=== PATIENT | female | born 1960 | race Caucasian/White ===

== ENCOUNTER 2017-12-27 08:43 | Day surgery (SDC) | payer OTHER ==
[~2017-12-27 08:43] MED LIST: Lactated Ringers 1,000 ML IV SCH; Lidocaine 1%/Sod Bicarbonate in NS 8.4% 1 ML Syringe IDERM PRN; Sodium Chloride 0.9% 10 ML Syringe FLUSH PRN
[2017-12-27] MEDS ORDERED: Propofol 200 MG/20 ML SDV ONE ×3 (09:59→12:09)
[2017-12-27] MEDS ORDERED: Midazolam 1 MG/ML 2 ML SDV ONE (09:59)
[2017-12-27] MEDS ORDERED: fentaNYL 250 MCG/5 ML SDV ONE (10:00)
[2017-12-27] MEDS ORDERED: Dexamethasone 4 MG/ML SDV ONE (10:00)
[2017-12-27] MEDS ORDERED: Ondansetron 4 MG/2 ML SDV ONE (10:00)
[2017-12-27] MEDS ORDERED: Lidocaine 1% 4 ML ONE (10:00)
[2017-12-27] MEDS ORDERED: Rocuronium 50 MG/5 ML Vial ONE (10:01)
[2017-12-27] MEDS ORDERED: ceFAZolin 1 GM Vial ONE ×2 (10:03)
--- NOTE | 2017-12-27 10:09 | PCM.PREANE ---
Preanesthetic Assessment - Procedure Proposed Procedure: Laparoscopy, D&C - Anesthesia/Transfusion/Family Hx Anesthesia History: Prior Anesthesia Without Reaction Family History of Anesthesia Reaction: No Transfusion History: No Prior Transfusion(s) Additional History: abdominal aortic bifurcation, SLE on chart but patient stated it "resolved itself" - Review of Systems General: No Symptoms Pulmonary: No Symptoms Cardiovascular: No Symptoms Gastrointestinal: No Symptoms Neurological: No Symptoms Other: Reports: Thyroid Problems (hypothyroid) - Physical Assessment NPO Status Date: 12/26/17 NPO Status Time: 21:00 O2 Sat by Pulse Oximetry: 96 Respiratory Rate: 18 Vital Signs: Last Vital Signs Temp 36.4 C 12/27/17 08:45 Pulse 65 12/27/17 08:45 Resp 18 12/27/17 08:45 BP 149/83 H 12/27/17 08:45 Pulse Ox 96 12/27/17 08:45 Height: 1.7 m Weight: 90.265 kg ASA Class: 2 Airway Class: Mallampati = 2 Dentition: Reports: Normal Dentition Thyro-Mental Finger Breadths: 3 ROM/Head Extension: Full Lungs: Clear to Auscultation, Normal Respiratory Effort Cardiovascular: Regular Rate, Regular Rhythm - Lab Values: Laboratory Last Values WBC 4.58 K/mm3 (3.98-10.04) 12/27/17 09:05 RBC 5.34 M/mm3 (3.98-5.22) H 12/27/17 09:05 Hgb 15.4 gm/L (11.2-15.7) 12/27/17 09:05 Hct 46.2 % (34.1-44.9) H 12/27/17 09:05 MCV 86.5 fl (79.4-94.8) 12/27/17 09:05 MCH 28.8 pg (25.6-32.2) 12/27/17 09:05 MCHC 33.3 g/dl (32.2-35.5) 12/27/17 09:05 RDW Std Deviation 42.3 fL (36.4-46.3) 12/27/17 09:05 Plt Count 187 K/mm3 (182-369) 12/27/17 09:05 MPV 9.5 fl (9.4-12.3) 12/27/17 09:05 Neut % (Auto) 42.2 % (34.0-71.1) 12/27/17 09:05 Lymph % (Auto) 41.5 % (19.3-51.7) 12/27/17 09:05 Grainger % (Auto) 12.9 % (4.7-12.5) H 12/27/17 09:05 Eos % (Auto) 2.8 (0.7-5.8) 12/27/17 09:05 Baso % (Auto) 0.4 % (0.1-1.2) 12/27/17 09:05 Neut # (Auto) 1.93 K/mm3 (1.56-6.13) 12/27/17 09:05 Lymph # (Auto) 1.90 K/mm3 (1.18-3.74) 12/27/17 09:05 Grainger # (Auto) 0.59 K/mm3 (0.24-0.36) H 12/27/17 09:05 Eos # (Auto) 0.13 K/mm3 (0.04-0.36) 12/27/17 09:05 Baso # (Auto) 0.02 K/mm3 (0.01-0.08) 12/27/17 09:05 - Allergies Allergies/Adverse Reactions: Allergies Allergy/AdvReac Type Severity Reaction Status Date / Time Sulfa (Sulfonamide Allergy Rash Verified 12/26/17 12:36 Antibiotics) codeine AdvReac Nausea Verified 12/26/17 14:14 - Blood Blood Available: No Product(s) Available: None - Anesthesia Plan Pre-Op Medication Ordered: None - Acknowledgements Anesthesia Type Planned: General Anesthesia (TIVA recommended ) Pt an Appropriate Candidate for the Planned Anesthesia: Yes Alternatives and Risks of Anesthesia Discussed w Pt/Guardian: Yes Pt/Guardian Understands and Agrees with Anesthesia Plan: Yes PreAnesthesia Questionnaire HEENT History: Reports: Impaired Vision Cardiovascular History: Reports: Other (See Below) Other Cardiovascular 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, has seen cardiology, no interventions needed Respiratory History: Reports: None Gastrointestinal History: Reports: None Genitourinary History: Reports: None WEB SEARCH EVALUATOR History: Reports: Other (See Below) Other OB/BYN History: hot flashes, ovarian cyst, thickened endometrium, Musculoskeletal History: Reports: None Neurological History: Reports: None Psychiatric History: Reports: None Endocrine/Metabolic History: Reports: Hypothyroidism Hematologic History: Reports: None Immunologic History: Reports: SLE Oncologic (Cancer) History: Reports: None Dermatologic History: Reports: None - Past Surgical History Head Surgeries/Procedures: Reports: None HEENT Surgical History: Reports: None Cardiovascular Surgical History: Reports: None Respiratory Surgical History: Reports: None GI Surgical History: Reports: Cholecystectomy Female Surgical History: Reports: None Male Surgical History: Reports: None Endocrine Surgical History: Reports: None Neurological Surgical History: Reports: None Musculoskeletal Surgical History: Reports: None Oncologic Surgical History: Reports: None Dermatological Surgical History: Reports: None - SUBSTANCE USE Smoking Status *Q: Never Smoker Recreational Drug Use History: No - HOME MEDS Home Medications: Home Meds Multivitamin [Multi-Day Vitamins] 1 tab PO DAILY 12/26/17 [History] Mv-Mn/Lutein/Zeax/Bilber/Hb277 [Macular Health Formula Capsule] 1 tab PO DAILY 12/26/17 [History] Progesterone,Micronized [Progesterone] 100 mg PO BEDTIME 12/26/17 [History] Progesterone/Estrogen/Testoste 1 dose TOP DAILY 12/26/17 [History] - CURRENT (IN HOUSE) MEDS Current Meds: Current Medications Lactated Ringer's (Ringers, Lactated) 1,000 mls @ 125 mls/hr IV ASDIRECTED KAVITA Stop: 12/27/17 23:00 Last Admin: 12/27/17 09:00 Dose: 125 mls/hr Lidocaine/Sodium Bicarbonate (Buffered Lidocaine 1% In Ns 8.4%) 0.25 ml IDERM ONETIME PRN PRN Reason: Prior to IV Start Stop: 12/27/17 18:00 Last Admin: 12/27/17 08:59 Dose: 0.25 ml Scopolamine (Transderm-Scop) 1.5 mg TRDERM Q72H ONE Stop: 12/27/17 10:07 Sodium Chloride (Saline Flush) 10 ml FLUSH ASDIRECTED PRN PRN Reason: Keep Vein Open Stop: 12/27/17 18:00 Discontinued Medications Dexamethasone (Dexamethasone) Confirm Administered Dose 4 mg .ROUTE .STK-MED ONE Stop: 12/27/17 10:01 Fentanyl (Sublimaze) Confirm Administered Dose 250 mcg .ROUTE .STK-MED ONE Stop: 12/27/17 10:01 Lidocaine HCl (Xylocaine-Mpf 1%) Confirm Administered Dose 4 mls @ as directed .ROUTE .STK-MED ONE Stop: 12/27/17 10:01 Midazolam HCl (Versed 1 Mg/Ml) Confirm Administered Dose 2 mg .ROUTE .STK-MED ONE Stop: 12/27/17 10:00 Ondansetron HCl (Zofran) Confirm Administered Dose 4 mg .ROUTE .[email or web address] ONE Stop: 12/27/17 10:01 Propofol (Diprivan 20 Ml) Confirm Administered Dose 200 mg .ROUTE .STK-MED ONE Stop: 12/27/17 10:00 Propofol (Diprivan 20 Ml) Confirm Administered Dose 200 mg .ROUTE .[email or web address] ONE Stop: 12/27/17 10:02 Rocuronium [place] (Zemuron) Confirm Administered Dose 50 mg .ROUTE .STK-MED ONE Stop: 12/27/17 10:02
[2017-12-27] MEDS ORDERED: Scopolamine 1.5 MG Transdermal Patch TRDERM ONE (10:15)
[2017-12-27] MEDS: Bupivacaine 0.5% 30 ML SDV ONE ×2 (10:38→11:30)
[2017-12-27] MEDS ORDERED: HYDROmorphone 0.5 MG/0.5 ML Syringe ONE ×3 (11:16→12:52)
[2017-12-27] MEDS ORDERED: Labetalol 100 MG/20 ML MDV ONE (11:54)
[2017-12-27] MEDS ORDERED: Lactated Ringers 1,000 ML ONE (12:02)
[2017-12-27] MEDS ORDERED: Ketorolac 30 MG/ML SDV ONE (12:03)
[2017-12-27] MEDS ORDERED: Phenylephrine/Normal Saline 100 MCG/ML 10 ML Syringe ONE (12:25)
[2017-12-27] MEDS ORDERED: ePHEDrine/Normal Saline 25 MG/5 ML Syringe ONE (12:26)
--- NOTE | 2017-12-27 13:14 | PCM.OPNOTE ---
- General Post-Op/Procedure Note Date of Surgery/Procedure: 12/27/17 Operative Procedure(s): Left salpingo-oophorectomy via laparoscope 95928. Lysis of adhesions via laparoscope 00734. D&C hysteroscopy 65913 Pre Op Diagnosis: Ovarian cysts left, thickened endometrium Post-Op Diagnosis: Same plus adhesions of ovary to pelvic sidewall. Anesthesia Technique: General ET Tube Primary Surgeon: Nico Escobar Secondary Surgeon: Georgi Vallecillo Anesthesia Provider: Cinthia Hull Home Extension Agent: Maria Lagos ([email or web address]) Reason Home Extension Agent Was Necessary: Difficulty of surgery, assist in surgery, decrease comorbidity and colmortality Role of Home Extension Agent: Difficulty of surgery, assist in surgery, decrease comorbidity and colmortality Fluid Replacement, Intraop: 1,500 Output, Urine Amount: 50 EBL in mLs: 200 Drain/Tube Comments:: [place] placed during surgery and removed after surgery. Complications: None Condition: Good Free Text/Narrative:: Patient was transported to operating room and placed under general anesthesia with endotracheal intubation the low dorsal lithotomy position. Prepared and draped in a sterile fashion. Timeout performed confirming name, date of , and procedure as laparoscopy removal of left ovary and tube and D&C and hysteroscopy. SCDs in place and functioning prior surgery. Ancef 2 g given intravenously prior surgery. Vaginal and abdominal prep having been performed the examination under anesthesia had revealed left adnexal mass as previously noted. A 2 mL injection of 0.5% Marcaine placed at the umbilicus and a vertical incision made and the pneumoperitoneum needle was introduced without difficulty. Prompt visualization of the pelvic organs was accomplished. The left ovary was enlarged approximate 6 x 6 x 6 cm. There were adhesions of the left ovary to the pelvic sidewall along with adhesions from bowel as well to pelvic sidewall. A midline incision was made approximately 5 mm in length and 5 mm trocar introduced and left lower quadrant and right lower quadrant trochars were introduced in the flanks along 2 cm in and 2 cm up from the superior iliac crest. Utilizing manipulators and the Enseal the ovary was grasped and elevated with traction and adhesions were lysed from the ovary to the pelvic sidewall along with lysis of adhesions from the bowel to the pelvic sidewall pushing the large intestines away from the ovary the ovary was elevated and the infundibulopelvic ligament was crossclamped activated in seal and incised. Hemostasis was normal. The sitting towards the uterus crossclamping with the Enseal activating and incising until the triple pedicle was approximated removing the ovary by crossclamping the utero-ovarian ligament and fallopian tube activating and incising. Irrigation was carried out her several raw areas of bleeding and these were clamped and Enseal activated. A 12 mm incision was made and 12 mm port introduced at the suprapubic area and Endobag introduced and the ovary placed in the Endobag. Due to the size of the ovary incision had to be extended laterally in the suprapubic region to accommodate removal of the ovary in the Endobag. The anterior fascia was then suture ligated with 0 Vicryl running suture. Subcutaneous tissue was approximated with 3-0 running Vicryl and the skin was closed with 4-0 Monocryl subcuticular suture. Pneumoperitoneum was then reestablished and inspection of the surgery area revealed a small amount of oozing and FloSeal was introduced for hemostasis irrigation had been carried out and extraneous blood removed from the cul-de-sacs anterior and posterior. Sponge needle pack and instrument count correct 2 the remaining incisions were closed with 3-0 Monocryl for subcutaneous tissue and 4-0 Monocryl for the subcuticular closure. D&C and hysteroscopy performed sounding the uterus to 8 cm dilating to accommodate the hysteroscope evaluation with the hysteroscope revealed no polyps no significant amount of tissue both tubal ostia were visualized. Curettage was performed all tissue sent to pathology for tissue evaluation. Images taken Image 001 left ovary Image 002 each or of gloved hand focusing image Image 003 hysteroscopy view of the right tubal ostium Image 004 shows the left tubal ostium Image 005 shows the left tubal ostium after curettage Image 006 shows the right tubal ostium visualized proximally 6:00 after the curettage Image 007 the cervical canal and apex of the endometrial cavity with the right tubal ostium visualized
--- NOTE | 2017-12-27 13:41 | PCM.POSTAN ---
POST ANESTHESIA ASSESSMENT - MENTAL STATUS Mental Status: Other (drowsy ) - VITAL SIGNS Pulse Rate: 76 SaO2: 95 Resp Rate: 16 Blood Pressure: 117/76 Temperature: 37 C - RESPIRATORY Respiratory Status: Respiratory Rate WNL, Airway Patent, O2 Saturation Stable - CARDIOVASCULAR CV Status: Pulse Rate WNL, Blood Pressure Stable - GASTROINTESTINAL GI Status: No Symptoms - PAIN Pain Score: 0 - POST OP HYDRATION Hydration Status: Adequate & Stable
[2017-12-27] MEDS ORDERED: HYDROmorphone 0.5 MG/0.5 ML Syringe IVPUSH PRN (13:42)
[2017-12-27] MEDS ORDERED: fentaNYL 100 MCG/2 ML SDV IVPUSH PRN (13:42)
[2017-12-27] MEDS ORDERED: Ondansetron 4 MG/2 ML SDV IVPUSH PRN (13:42)
[2017-12-27] MEDS ORDERED: diphenhydrAMINE 50 MG/ML SDV IVPUSH PRN (13:42)
[2017-12-27] MEDS ORDERED: Acetaminophen/HYDROcodone 325-5 MG Tab PO PRN (14:45)
[2017-12-27] MEDS ORDERED: Albuterol 0.083% 2.5 MG/3 ML Neb Soln NEB ONE (15:36)
--- NOTE | 2017-12-27 16:04 | PCM.SN ---
- Free Text/Narrative Note: 12/27/2017 1603 Nausea better, has scopolamine patch in place. O2 sats have been 95-97% on one liter O2 and drops to 88 with room air. Respiratory therapy here for breathing treatment, then insentive spirometer frequently while awake. Will re-evaluate after breathing treatment.
== END 2017-12-27 19:23 | disposition home or self-care (01) ==
LOC: JD.SDS 08:43
PROVIDERS: ATTEND Obstetrics & Gynecology
DX: N83.292 Other ovarian cyst, left side (principal); N73.6 Female pelvic peritoneal adhesions (postinfective); E03.9 Hypothyroidism, unspecified; I74.09 Other arterial embolism and thrombosis of abdominal aorta; Z86.018 Personal history of other benign neoplasm; Z79.899 Other long term (current) drug therapy; Z88.5 Allergy status to narcotic agent; Z88.2 Allergy status to sulfonamides
CPT/HCPCS: 00840; 36415; 85025; 88302; 88305; 94640; A9270-GY; J0690; J1100; J1170; J1885; J2001; J2250; J2405; J2704; J3010; J7050; J7120